=== PATIENT | female | born 1950 | race Caucasian/White ===

== ENCOUNTER 2018-08-22 10:26 | Observation (INO) ==
[2018-08-22 10:51] LABS: Hematocrit 45.5 % (35.3-44.9); Hemoglobin 14.8 g/dL (11.5-15.4); Mean Corpuscular HGB Conc 32.5 g/dL (31.6-35.5); Mean Corpuscular Hemoglobin 29.5 pg (28.0-33.3); Mean Corpuscular Volume 90.8 fL (83.0-100.0); Platelet Count 152 K/mcL (140-400); Red Blood Count 5.01 M/mcL (3.82-4.97); Red Cell Distribution Width 13.9 % (11.5-14.5)
--- NOTE | 2018-08-22 10:53 | Emergency Department Note ---
Disposition Clinical Impression: TIA (transient ischemic attack) HLD (hyperlipidemia) Qualifiers: Hyperlipidemia type: unspecified Qualified Code(s): E78.5 - Hyperlipidemia, unspecified Hypertension Qualifiers: Hypertension type: essential hypertension Qualified Code(s): I10 - Essential (primary) hypertension Disposition: Admitted As Inpatient Condition: Fair Neuro HPI - General Stated Complaint: possible stroke Time Seen by Provider: 08/22/18 10:29 Source: EMS Limitations: no limitations Nursing Notes Reviewed: Yes Vital Signs Reviewed: Yes - History of Present Illness HPI Narrative: 67-year-old female with history of hypertension who presents the emergency department with complaints of left-sided facial droop, slurred speech and right leg weakness. The patient states this morning she woke up and her right finger was twitching otherwise she felt well. She states that at 9:00 she had a sudden onset of headache which went away. She then had a recurrence of her headache around 9:30 and she went home. At that time she was found to have slurred speech and left-sided facial droop. She otherwise states she was recently discontinued from lisinopril as she was having low blood pressure. Otherwise denies any nausea, vomiting, diarrhea, dysuria, hematuria, numbness, tingling. - Related Data Home Medications: Home Medications Medication Instructions Recorded Confirmed Ascorbate Calcium [Vitamin C] 500 mg PO DAILY 03/16/16 03/16/16 Calcium Carbonate [Calcium] 1,200 mg PO BID 03/16/16 03/16/16 Cholecalciferol (D-3) [Vitamin D] 1,000 unit PO DAILY 03/16/16 03/16/16 Cyclobenzaprine [Flexeril] 10 mg PO HS 03/16/16 03/16/16 DiphenhydraMINE [Benadryl] 25 mg PO HS 03/16/16 03/16/16 EPINEPHrine [Epipen] 0.3 mg IJ ONCE PRN 03/16/16 03/16/16 Multivitamin [Multi-Day Vitamins] 1 tab PO DAILY 03/16/16 03/16/16 Niacin (24 HR) [Niaspan] 1,000 mg PO BID 03/16/16 03/16/16 Olopatadine HCl [Patanol] 1 drop OP BID 03/16/16 03/16/16 TraZODone 50 mg PO HS 03/16/16 03/16/16 Previous Rx's Medication Instructions Recorded Ondansetron ODT [Zofran ODT] 4 mg SL Q6HR #8 tab.rapdis 04/28/17 Allergies/Adverse Reactions: Allergies Allergy/AdvReac Type Severity Reaction Status Date / Time Amoxicillin Allergy Vomiting Verified 07/26/18 10:48 Azelastine Allergy Vomiting Verified 07/26/18 10:48 cephalexin Allergy Vomiting Verified 07/26/18 10:48 clonidine Allergy Vomiting Verified 07/26/18 10:48 coconut Allergy Hives Verified 08/22/18 11:00 doxycycline Allergy Vomiting Verified 07/26/18 10:48 glycerin Allergy Vomiting Verified 07/26/18 10:48 [From Colace Glycerin (Adult)] levothyroxine Allergy Vomiting Verified 07/26/18 10:48 levothyroxine sodium Allergy Vomiting Verified 07/26/18 10:48 montelukast [From Singulair] Allergy Vomiting Verified 07/26/18 10:48 Penicillins Allergy Vomiting Verified 07/26/18 10:48 Raloxifene Allergy Vomiting Verified 07/26/18 10:48 red dye Allergy Vomiting Verified 07/26/18 10:48 sodium Allergy Vomiting Verified 07/26/18 10:48 sulfur [From Sulfur-8] Allergy Vomiting Verified 07/26/18 10:48 tetracycline Allergy Vomiting Verified 07/26/18 10:48 yellow dye Allergy Vomiting Verified 07/26/18 10:48 caffeine AdvReac See Verified 03/16/16 08:47 Comments feathers AdvReac See Verified 03/16/16 08:47 Comments grass pollen AdvReac See Verified 03/16/16 08:47 Comments lisinopril AdvReac Dizziness Verified 08/22/18 11:00 milk AdvReac See Verified 03/16/16 08:47 Comments mold AdvReac See Verified 03/16/16 08:47 Comments pollen extracts AdvReac See Verified 03/16/16 08:47 Comments [place] AdvReac See Verified 03/16/16 08:47 Comments theophylline AdvReac See Verified 03/16/16 08:47 Comments tree and shrub pollen AdvReac See Verified 03/16/16 08:47 Comments sodium Allergy Vomiting Uncoded 07/26/18 10:48 vitamin c AdvReac Congested Uncoded 01/09/19 11:01 All systems ED: reviewed and negative except as stated. Review of Systems: As Per HPI Constitutional: Reports: weakness. Denies: fever, chills Eyes: Denies: eye discharge, vision change Cardiovascular: Denies: chest pain, palpitations, dyspnea on exertion Respiratory: Denies: cough, dyspnea, wheezes Gastrointestinal: Denies: abdominal pain, nausea, vomiting, diarrhea Genitourinary: Denies: urgency, dysuria Musculoskeletal: Denies: back pain, neck pain Integumentary: Denies: rash, abrasion Neurological: Reports: headache, weakness. Denies: numbness, paresthesias, confusion Psychiatric: Denies: anxiety, depression Endocrine: Denies: fatigue Past Medical History - Past Medical History Medical history: Reports: arthritis, GERD, hyperlipidemia, osteoporosis Surgical history: Reports: hysterectomy Psychiatric history: Reports: no psych history - Social History Smoking Status: Never smoker Smokeless Tobacco Status: No Alcohol use: Reports: none Drug use: Reports: none Physical Exam - General Limitations: no limitations General appearance: alert, in no apparent distress - Head Head exam: atraumatic, normocephalic - Eye Eye exam: Present: normal appearance, PERRL, EOMI - ENT ENT exam: normal exam, normal oropharynx, mucous membranes moist - Neck Neck exam: Present: normal inspection, full ROM, trachea midline - Chest Chest inspection: Present: normal inspection, symmetric chest wall rise. Absent: tenderness - Respiratory Respiratory exam: Present: normal lung sounds bilaterally. Absent: respiratory distress, wheezes, stridor - Cardiovascular Cardiovascular exam: Present: regular rate, normal rhythm, normal heart sounds - Abdominal Exam Abdominal exam: Present: soft, Non-Tender, normal bowel sounds. Absent: distention, guarding, rebound, rigidity - Neurological Exam Neurological exam: Present: alert, oriented X3 - Expanded Neurological Exam Patient oriented to: Present: person, place, time Speech: Present: fluid speech Course - Reevaluation(s) Reevaluation #1: After CT scan she had no symptoms or weakness. Reevaluated the patient and she states her speech is slurred and she is having left sided facial weakness. She now has right sided leg weakness. She states she is currently having a left- sided headache and has right-sided blurred vision. She states she has been worked up by a heavy forger recently for possible giant cell arteritis. Time: 11:20 - Consultations Consultation #1: Per radiology head CT is negative. Time: 10:51 Vital Signs Temperature 97.7 F 08/22/18 10:38 Pulse Rate 79 08/22/18 10:38 Respiratory Rate 18 08/22/18 10:38 Blood Pressure 179/96 08/22/18 10:38 O2 Sat by Pulse Oximetry 97 08/22/18 10:38 Temperature 97.7 F 08/22/18 10:38 Pulse Rate 81 08/22/18 11:02 Respiratory Rate 20 08/22/18 11:02 Blood Pressure 181/93 08/22/18 11:02 O2 Sat by Pulse Oximetry 97 08/22/18 10:38 Oxygen Delivery Oxygen Delivery Room Air Neuro Symptoms/Deficit - MDM Narrative Medical decision making narrative: 67-year-old female with history of hypertension, no longer on medication presenting with symptoms concerning for CVA. Onset within the four and a half hour window for TPA. On initial exam the patient's NIH is 1 due to right-sided leg weakness. CT head noncontrast obtained which revealed no evidence of acute bleed. After CT scan the patient was evaluated and found to be asymptomatic now. Her NIH at that point was 0. She does seem to have intermittent periods of symptoms with slurred speech and left-sided facial droop along with right- sided lower extremity weakness. Obtained an MRA head and neck to evaluate for occlusive disease. Otherwise she does have temporal pain for which she is currently being worked up for temporal arteritis. Sedimentation rate and CRP obtained which were normal. At this point unsure as to whether symptoms are from TIA, CVA, or lesion seen on both the left and right posterior cerebral arteries on MRA head. ASA 325mg given. Discussed case with on-call hospitalist, Dr. Wing who agrees with plan for admission. Patient agrees with and understands course of treatment plan including plan for admission. All questions answered. - Medical Records Medical records reviewed: Yes I reviewed the patient's medical records. - Lab Data Lab results reviewed: Yes I reviewed the patient's lab results. Result diagrams: 08/22/18 10:41 08/22/18 10:41 Lab Results 08/22/18 08/22/18 08/22/18 Range/Units 10:39 10:41 10:41 WBC 2.7 L (4.3-11.1) K/mcL RBC 5.01 H (3.82-4.97) M/mcL Hgb 14.8 (11.5-15.4) g/dL Hct 45.5 H (35.3-44.9) % MCV 90.8 (83.0-100.0) fL MCH 29.5 (28.0-33.3) pg MCHC 32.5 (31.6-35.5) g/dL RDW 13.9 (11.5-14.5) % Plt Count 152 (140-400) K/mcL MPV 10.0 (9.4-12.4) fL ESR (0-15) mm/hr PT 10.2 (9.4-12.1) Seconds INR 0.9 APTT 24.6 L (26.0-36.0) Seconds Sodium (136-145) mEq/L Potassium (3.5-5.1) mEq/L Chloride (98-107) mEq/L Carbon Dioxide (23-29) mEq/L BUN (8-23) mg/dL Creatinine (0.60-1.20) mg/dL Est GFR ( Amer) (> 60) Est GFR (Non-Af Amer) (> 60) BUN/Creatinine Ratio (6-26) Glucose (70-105) mg/dL POC Glucose 126 H (70-99) mg/dL Calculated Osmolality (280-300) Calcium (8.6-10.3) mg/dL Troponin I (< 0.04) ng/mL C-Reactive Protein (Less than 10) mg/L 08/22/18 08/22/18 Range/Units 10:41 10:41 WBC (4.3-11.1) K/mcL RBC (3.82-4.97) M/mcL Hgb (11.5-15.4) g/dL Hct (35.3-44.9) % MCV (83.0-100.0) fL MCH (28.0-33.3) pg MCHC (31.6-35.5) g/dL RDW (11.5-14.5) % Plt Count (140-400) K/mcL MPV (9.4-12.4) fL ESR 2 (0-15) mm/hr PT (9.4-12.1) Seconds INR APTT (26.0-36.0) Seconds Sodium 135 L (136-145) mEq/L Potassium 3.8 (3.5-5.1) mEq/L Chloride 102 (98-107) mEq/L Carbon Dioxide 25 (23-29) mEq/L BUN 14 (8-23) mg/dL Creatinine 1.01 (0.60-1.20) mg/dL Est GFR ( Amer) > 60 (> 60) Est GFR (Non-Af Amer) 55 L (> 60) BUN/Creatinine Ratio 14 (6-26) Glucose 161 H (70-105) mg/dL POC Glucose (70-99) mg/dL Calculated Osmolality 284 (280-300) Calcium 8.8 (8.6-10.3) mg/dL Troponin I < 0.03 (< 0.04) ng/mL C-Reactive Protein < 5 (Less than 10) mg/L - Radiology Data Radiology results reviewed: Yes I reviewed the patient's radiology results. Brain MRI 08/22/18 00:00 IMPRESSION: Mild chronic small vessel ischemic changes. No acute brain parenchymal abnormality. D/ / 08/22/2018 13:51:54 Shalini Gross MD / [facility] Interpreting Provider: Shalini Gross MD Head CT 08/22/18 10:29 IMPRESSION: 1.No acute intracranial abnormality. These findings were discussed with Inna Harp at 10:49 a.m. 08/22/2018. D/ / Jaiden Castellanos MD / Jaiden Castellanos MD Interpreting Provider: Jaiden Castellanos MD Head MRA 08/22/18 10:58 IMPRESSION: Short-segment stenoses in the P1 segments of both the left and right posterior cerebral arteries, which is nonspecific and could represent atherosclerotic disease. Sometimes vasculitis can cause this finding. There is no abnormality of the anterior circulation. D/ / 08/22/2018 13:56:57 Shalini Gross MD / [facility] Interpreting Provider: Shalini Gross MD Neck MRA 08/22/18 10:58 IMPRESSION: Motion artifact degrades the images. No significant abnormality of the neck vessels. D/ / 08/22/2018 14:01:54 Shalini Gross MD / [facility] Interpreting Provider: Shalini Gross MD NIH Stroke Scale - Level of Consciousness LOC: Alert - LOC Questions LOC Questions: Answers both correctly - LOC Commands LOC Commands: Performs both correctly - Best Gaze Best Gaze: Normal - Visual Visual: No visual loss - Facial Palsy Facial Palsy: Normal - Motor Arms Motor Arm-Left: No drift for 10 seconds Motor Arm-Right: No drift for 10 seconds - Motor Legs Motor Leg-Left: No drift for 5 seconds Motor Leg-Right: Drift, does NOT hit bed - Limb Ataxia Limb Ataxia: Normal, No Ataxia - Sensory Sensory: Normal - Best Language Best Language: No aphasia - Dysarthria Dysarthria: Normal - Extinction and Inattention Extinction and Inattention: Normal - NIHSS Total Score NIHSS Total Score: 1 TPA Checklist - Source Information Source: Patient - Eligibilty for IV tPA 1. LKW equal to or less than 4.5 hours be before treatment: Yes 2. Clinical diagnosis of ischemic stroke causing deficit: Yes 3. Age 18 years or older: Yes - Contraindications 4. Evidence of intracranial hemorrhage on pretreatment CT: No - LKW: 3-4.5 hrs Add. Warnings/Precautions Patient/family understanding: The patient/family members have been counseled and understood the risk, benefit, and alternatives of treatment.
[2018-08-22 11:01] LABS: INR 0.9; Prothrombin Time 10.2 Seconds (9.4-12.1)
[2018-08-22 11:03] LABS: Activated Partial Thrombo Time 24.6 Seconds (26.0-36.0)
[2018-08-22] MEDS ORDERED: predniSONE 20 MG TABLET PO ONE (11:10)
[2018-08-22 11:12] LABS: BUN/Creatinine Ratio 14 (6-26); Blood Urea Nitrogen 14 mg/dL (8-23); Calcium 8.8 mg/dL (8.6-10.3); Carbon Dioxide 25 mEq/L (23-29); Chloride 102 mEq/L (98-107); Glucose 161 mg/dL (70-105); Osmolality,Calculated 284 (280-300); Potassium 3.8 mEq/L (3.5-5.1); Sodium 135 mEq/L (136-145); Troponin I < 0.03 ng/mL (< 0.04); eGFR For Non-African Americans 55 (> 60)
[2018-08-22 11:57] LABS: C-Reactive Protein < 5 mg/L (Less than 10)
[2018-08-22] MEDS ORDERED: Aspirin 325 MG TABLET PO ONE (12:47)
--- NOTE | 2018-08-22 13:16 | Internal Med History&Physical ---
Date of Encounter: 08/22/18 Time of Encounter: 13:30 Internal Medicine - H&P: HPI Chief complaint: Left facial droop Admitted From: Home Plans for Post Hospital Care: Home History of present illness: Ms. Hernandez is a 67 year old female with PMH of HTN, HLD, GERD, multiple allergies, not taking anti-hypertensives, who presented via EMS with complains of left facial droop and slurred speech. She reports being in her usual state of health till this morning around 9.30 a.m when she noticed she started having R sided headaches, Left facial droops and Right leg weakness. She describes it as "feeling like someone is sitting on her R leg" She is a poor historian with multiple non-specific complains including R sided temporal pain for which she was having work up by a mechatronics technologist. She has received multiple steroid shots for sinusitis recently. Her main complains are the neurologic symptoms At time of review, her facial droop and slurred speech has resolved. But her R leg still feels heavy She has no numbness, chest pain, difficulty breathing, SOB, cough, fever or chills, no diarrhea or GI or symptoms Denies smoking or illicit drug use Has multiple allergies-noted Work up in ER *EKG: SR, LBBB-compared to EKG from 06/17 no changes noted *CXR: no infiltrates *Head CT: No acute findings *CBC: leukopenia and polycythemia *Chem: hyperglycemia *ESR: ENL *CRP: WNL Awaiting MRA head and neck reading She is full code Past Med Surg Social Fam HX - Past Medical History Medical history: arthritis, GERD, hyperlipidemia, osteoporosis Additional medical history: skin cancer Psychiatric history: no psych history - Past Surgical History Surgical History: hysterectomy Additional surgical history: tubal ligation - Social History Smoking Status: Never smoker Smokeless Tobacco Status: No Alcohol use: none Drug use: none Internal Medicine - H&P: Meds Ascorbate Calcium [Vitamin C] 500 mg PO DAILY 03/16/16 [History] Calcium Carbonate [Calcium] 1,200 mg PO BID 03/16/16 [History] Cholecalciferol (D-3) [Vitamin D] 1,000 unit PO DAILY 03/16/16 [History] Cyclobenzaprine [Flexeril] 10 mg PO HS 03/16/16 [History] DiphenhydraMINE [Benadryl] 25 mg PO HS 03/16/16 [History] EPINEPHrine [Epipen] 0.3 mg IJ ONCE PRN 03/16/16 [History] Multivitamin [Multi-Day Vitamins] 1 tab PO DAILY 03/16/16 [History] Niacin (24 HR) [Niaspan] 1,000 mg PO BID 03/16/16 [History] Olopatadine HCl [Patanol] 1 drop OP BID 03/16/16 [History] TraZODone 50 mg PO HS 03/16/16 [History] Ondansetron ODT [Zofran ODT] 4 mg SL Q6HR #8 tab.rapdis 04/28/17 [Rx] Benzonatate 07/26/18 [History] Clotrimazole 07/26/18 [History] Fluticasone Propionate 07/26/18 [History] Fosamax 07/26/18 [History] Levaquin 07/26/18 [History] Loratadine 07/26/18 [History] Naproxen 07/26/18 [History] Pantoprazole 07/26/18 [History] Patanol 07/26/18 [History] Raloxifene HCl 07/26/18 [History] Terbinafine HCl 07/26/18 [History] Allergy/AdvReac Type Severity Reaction Status Date / Time Amoxicillin Allergy Vomiting Verified 07/26/18 10:48 Azelastine Allergy Vomiting Verified 07/26/18 10:48 cephalexin Allergy Vomiting Verified 07/26/18 10:48 clonidine Allergy Vomiting Verified 07/26/18 10:48 coconut Allergy Hives Verified 08/22/18 11:00 doxycycline Allergy Vomiting Verified 07/26/18 10:48 glycerin Allergy Vomiting Verified 07/26/18 10:48 [From Colace Glycerin (Adult)] levothyroxine Allergy Vomiting Verified 07/26/18 10:48 levothyroxine sodium Allergy Vomiting Verified 07/26/18 10:48 montelukast [From Singulair] Allergy Vomiting Verified 07/26/18 10:48 Penicillins Allergy Vomiting Verified 07/26/18 10:48 Raloxifene Allergy Vomiting Verified 07/26/18 10:48 red dye Allergy Vomiting Verified 07/26/18 10:48 sodium Allergy Vomiting Verified 07/26/18 10:48 sulfur [From Sulfur-8] Allergy Vomiting Verified 07/26/18 10:48 tetracycline Allergy Vomiting Verified 07/26/18 10:48 yellow dye Allergy Vomiting Verified 07/26/18 10:48 caffeine AdvReac See Verified 03/16/16 08:47 Comments feathers AdvReac See Verified 03/16/16 08:47 Comments grass pollen AdvReac See Verified 03/16/16 08:47 Comments lisinopril AdvReac Dizziness Verified 08/22/18 11:00 milk AdvReac See Verified 03/16/16 08:47 Comments mold AdvReac See Verified 03/16/16 08:47 Comments pollen extracts AdvReac See Verified 03/16/16 08:47 Comments [place] AdvReac See Verified 03/16/16 08:47 Comments theophylline AdvReac See Verified 03/16/16 08:47 Comments tree and shrub pollen AdvReac See Verified 03/16/16 08:47 Comments sodium Allergy Vomiting Uncoded 07/26/18 10:48 vitamin c AdvReac Congested Uncoded 08/22/18 11:01 All Systems PM: A 10-system review of systems was performed and is negative for pertinent findings except as documented above in the HPI. - Constitutional Constitutional: as per HPI - EENT Eyes: as per HPI Ears: as per HPI Nose, mouth and throat: as per HPI - Cardiovascular Cardiovascular ROS IM: as per HPI - Respiratory Respiratory: as per HPI - Gastrointestinal Gastrointestinal: as per HPI - Genitourinary Genitourinary: as per HPI - Musculoskeletal Musculoskeletal ROS IM: as per HPI - Integumentary Integumentary IM: as per HPI - Neurological Neurological ROS: as per HPI - Hematologic/Lymphatic Hematologic/Lymphatic: as per HPI - Constitutional Vitals: Temp Pulse Resp BP Pulse Ox 97.7 F 81 20 181/93 97 08/22/18 10:38 08/22/18 11:02 08/22/18 11:02 08/22/18 11:02 08/22/18 10:38 Exam: VS noted-uncontrolled blood pressure Gen: NAD MARCIANO: moist oral mucosa, not cynaotic, not clinically pale Neck: Normal inspection Chest: No chest wall tenderness, equal chest movement bilaterally Resp: CTAB Heart: S1, S2 RRR, no m/g/r Abdomen: Obese, soft, not tender Extremities: No pedal edema Neuro: Alert, awake, oriented X3, normal speech, no focal paralysis, Power 5/5 in all limbs, gait is normal, patient has no sensation abnormalities, she does have ataxia when she turns suddenly Skin: no rash Psych: Appropriate affect Internal Med - H&P Results - Labs CBC & Chem 7: 08/22/18 10:41 08/22/18 10:41 Labs: Short CBC 08/22/18 Range/Units 10:41 WBC 2.7 L (4.3-11.1) K/mcL Hgb 14.8 (11.5-15.4) g/dL Hct 45.5 H (35.3-44.9) % Plt Count 152 (140-400) K/mcL BMP 08/22/18 10:41 Sodium 135 L Potassium 3.8 Chloride 102 Carbon Dioxide 25 BUN 14 Creatinine 1.01 Glucose 161 H Calcium 8.8 Cardiac Enzymes 08/22/18 Range/Units 10:41 Troponin I < 0.03 (< 0.04) ng/mL - Impressions ITS Impressions Head CT 08/22/18 10:29 IMPRESSION: 1.No acute intracranial abnormality. These findings were discussed with Inna Harp at 10:49 a.m. 08/22/2018. D/ / Jaiden Castellanos MD / Jaiden Castellanos MD Interpreting Provider: Jaiden Castellanos MD - Assessment and plan (1) TIA (transient ischemic attack) Current Visit: Yes Status: Acute Assessment and plan: Suspected, based on history Follow final MRA reports Obtain ECHO No indication for speech eval at this time ASA 325 mg now, then 81 mg daily Head MRA showed short segment stenosis in the P1 segment of the left and right posterior cerebral arteries which is a nonspecific finding and could represent atherosclerotic disease versus vasculitis Suspicion for vasculitis is no mass patient's ESR and CRP are within normal limit. However, patient has been on steroids for sinusitis off and on. We will consult neurology Physical therapy evaluation (2) Hypertension Current Visit: Yes Status: Chronic Assessment and plan: Patient not taking any medications due to poor tolerance Will start amlodipine 5mg daily-given permissive HTN window for possible CVA IV labetalol prn-she reports adverse to hydralazine Continue to monitor Qualifiers: Hypertension type: essential hypertension Qualified Code(s): I10 - E ssential (primary) hypertension (3) HLD (hyperlipidemia) Current Visit: Yes Status: Chronic Assessment and plan: Reports myalgias to "all cholesterol medications' Educated on benefits vs risks of medications Agrees to try crestor from tonight May discontinue if patient complains Qualifiers: Hyperlipidemia type: unspecified Qualified Code(s): E78.5 - Hyperlipidemia, unspecified (4) Polycythemia Current Visit: Yes Status: Chronic Assessment and plan: patient states this is known to her Recommend hematology/oncology eval as out-patient, non-urgent (5) Hyperglycemia Current Visit: Yes Status: Acute Assessment and plan: likely due to multiple steroid shots, last one being 1st week of july Check a1C with a.m labs (6) Leukopenia Current Visit: Yes Status: Acute Assessment and plan: as in polycythemia Chronic, known to patient Qualifiers: Leukopenia type: unspecified Qualified Code(s): D72.819 - Decreased white blood cell count, unspecified - Time Spent With Patient Total time spent is greater than 50% in coordination of care (as documented) at patient's floor/unit and/or counseling patient:
--- NOTE | 2018-08-22 17:14 | Neurology - Consult Note ---
Date of Encounter: 08/22/18 Time of Encounter: 16:55 Assessment and Plan (1) TIA (transient ischemic attack) Current Visit: Yes Status: Acute The episode involve development of left eyelid drooping which is still present, left hand and finger muscle spasm as well as right leg weakness, lasting 45 minutes with a total resolution. A combination of symptoms would locate to a brainstem lesion due to presence of crossed weakness. However presentation is somewhat atypical due to patient having muscle spasm which is opposite of weakness. Also the patient's left eyelid drooping has been a chronic intermittent phenomenon since the last 6 months. Negative MRI of the brain excluded a brainstem stroke. At this time, would recommend the patient to start antiplatelet therapy in the form of aspirin 81 mg daily. Patient did have exposure to aspirin in the past but not on a regular basis. Patient already had MRA of the brain and neck completed which showed bilateral JOINTER OPERATOR P1 segment stenosis this finding would be unclear clinical significance due to patient having negative MRI of the brain of a new stroke. Treatment is largely conservative with antiplatelet therapy. (2) Chronic headache disorder Current Visit: Yes Status: Acute I agree that the patient likely does not have temporal arteritis. So far the patient's symptoms signs and laboratory studies does not meet the diagnosis criteria for temporal arteritis although she does have rather persistent right temporal tenderness. However, this could be part of a right occipital neuralgia which at times can refer to the frontal region. She does have rather significant tenderness and the dining area involving the back of the head involving the right skull conforming to the distribution of right occipital nerve. This can certainly be treated best with the occipital nerve blockade procedure which can be offered as an outpatient basis. Qualifiers: Headache type: unspecified Intractability: intractable Qualified Code(s): R51 - Headache (3) Eyelid drooping disease Current Visit: Yes Status: Acute Patient has been experiencing intermittent left eyelid drooping since the last 6 months without double vision or other cranial nerve deficits. In particular, there is no bulbar symptoms such as difficulty swallowing, speaking or breathing. There is no diffuse limb weakness. Differential consideration would be ocular myasthenia gravis or eyelid drooping secondary to eye/ocular conditions. Patient can certainly be evaluated by flat examiner as an outpatient basis. We will obtain myasthenia gravis panel to check for possible ocular myasthenia gravis. Patient can be seen in neurology clinic in the next 2-3 weeks. Qualifiers: Qualified Code(s): H02.402 - Unspecified ptosis of left eyelid History of Present Illness Chief complaint: TIA, left eyelid drooping and right leg weakness HPI: Ms. Hernandez is a 67 year old female with past medical history significant for hypertension, allergic rhinitis, osteoporosis, primary insomnia, long-term use of NSAIDs chronic headaches GERD who is consulted regarding old new onset of left eyelid drooping, left arm spasm as well as right leg weakness. Patient is interviewed alone and she is wide awake and alert and able to provide detailed history of her present illness. Patient states that about 9:30 this morning she woke up feeling left eyelid drooping which has been going on in the last 5-6 months intermittently. She developed acute muscle spasm involving her left hand and fingers and she states that she has to use her right hand to straighten her left fingers. At the same time she developed weakness in her right leg. She has been having intermittent left eyelid drooping since the last few months amezquita dipak, the left hand finger muscle spasm is new as well as right leg weakness. The symptoms lasted about 45 minutes and by the time she arrived to the emergency room her symptoms resolved. Initial head CT showed no acute intracranial abnormality. Subsequently, the patient also completed MRI of the brain which showed no acute intracranial abnormality. Patient's MRA of the brain showed short segment stenosis in the P1 segments of both the left and right posterior cerebral arteries which is nonspecific and could represent atherosclerotic disease. It was reported that sometimes vasculitis can cause this finding. There is no abnormality of anterior circulation. Patient also reports significant headaches that has been going on since the last 2 years year as a matter fact, there is questionable temporal arteritis diagnosis due to rather significant headaches involving the right jain region with tenderness that has been going on since the last 2 years. Patient just saw Dr. Magallanes the sheet metal worker helper ordered laboratory studies which showed normal sedimentation rate repetitively. It was thought that the patient does not have diagnosis of temporal arteritis due to lack of systemic symptoms, no jaw claudication, no PMR and normal ESR. Patient reports some ongoing sinus problems that required steroid injection and she will last one or 2 months which helped with the pain. Patient describes also intermittent pain involving the right back of head at the base of right occipital nerve exit 10 point that occur intermittently. The pain can refer to the right eye and at times to the left eye as well. At times, the patient describes a muscle knot at the right side back of the head that is painful to touch and palpate. The headaches tend to occur intermittently on last anywhere from 3 hours to a day. They are not associated with significant nausea or vomiting or light sensitivity. At the time of this interview, the patient symptoms essentially resolved. She does have some tenderness to the right jain region which is chronic in nature. She denies any focal neurological deficits at this moment. Echocardiogram is pending. Past Med Surg Social Fam HX - Past Medical History Medical history: arthritis, GERD, hyperlipidemia, osteoporosis Additional medical history: skin cancer Psychiatric history: no psych history - Past Surgical History Surgical History: hysterectomy Additional surgical history: tubal ligation - Social History Smoking Status: Never smoker Smokeless Tobacco Status: No Alcohol use: none Drug use: none - Family History Mother Living Status: Still Living Hx Family Cardiac Disorders: (HLD) Father Living Status: Hx Family Cardiac Disorders: Yes Hx Family Cancer: Yes Medications and Allergies Calcium Carbonate [Calcium] 1,200 mg PO BID 03/16/16 [History] Cholecalciferol (D-3) [Vitamin D] 1,000 unit PO DAILY 03/16/16 [History] Cyclobenzaprine [Flexeril] 10 mg PO HS 03/16/16 [History] DiphenhydraMINE [Benadryl] 25 mg PO HS 03/16/16 [History] EPINEPHrine [Epipen] 0.3 mg IJ ONCE PRN 03/16/16 [History] Niacin (24 HR) [Niaspan] 1,000 mg PO BID 03/16/16 [History] Olopatadine HCl [Patanol] 1 drop OP BID 03/16/16 [History] TraZODone 50 mg PO HS 03/16/16 [History] Aspirin [Adult Aspirin] 81 mg PO DAILY 08/22/18 [History] Fluticasone Propionate Nasal [Flonase] 1 spr NS DAILY PRN 08/22/18 [History] Loratadine [Allergy Relief] 10 mg PO DAILY 08/22/18 [History] Ondansetron ODT [Zofran ODT] 4 mg SL Q6HR PRN 08/22/18 [History] Pantoprazole Sodium [Protonix] 40 mg PO DAILY 08/22/18 [History] Allergy/AdvReac Type Severity Reaction Status Date / Time Amoxicillin Allergy Vomiting Verified 07/26/18 10:48 Azelastine Allergy Vomiting Verified 07/26/18 10:48 cephalexin Allergy Vomiting Verified 07/26/18 10:48 clonidine Allergy Vomiting Verified 07/26/18 10:48 coconut Allergy Hives Verified 08/22/18 11:00 doxycycline Allergy Vomiting Verified 07/26/18 10:48 glycerin Allergy Vomiting Verified 07/26/18 10:48 [From Colace Glycerin (Adult)] levothyroxine Allergy Vomiting Verified 07/26/18 10:48 levothyroxine sodium Allergy Vomiting Verified 07/26/18 10:48 montelukast [From Singulair] Allergy Vomiting Verified 07/26/18 10:48 Penicillins Allergy Vomiting Verified 07/26/18 10:48 Raloxifene Allergy Vomiting Verified 07/26/18 10:48 red dye Allergy Vomiting Verified 07/26/18 10:48 sodium Allergy Vomiting Verified 07/26/18 10:48 sulfur [From Sulfur-8] Allergy Vomiting Verified 07/26/18 10:48 tetracycline Allergy Vomiting Verified 07/26/18 10:48 yellow dye Allergy Vomiting Verified 07/26/18 10:48 caffeine AdvReac See Verified 03/16/16 08:47 Comments feathers AdvReac See Verified 03/16/16 08:47 Comments grass pollen AdvReac See Verified 03/16/16 08:47 Comments lisinopril AdvReac Dizziness Verified 08/22/18 11:00 milk AdvReac See Verified 03/16/16 08:47 Comments mold AdvReac See Verified 03/16/16 08:47 Comments pollen extracts AdvReac See Verified 03/16/16 08:47 Comments [place]ray AdvReac See Verified 03/16/16 08:47 Comments theophylline AdvReac See Verified 03/16/16 08:47 Comments tree and shrub pollen AdvReac See Verified 03/16/16 08:47 Comments sodium Allergy Vomiting Uncoded 07/26/18 10:48 vitamin c AdvReac Congested Uncoded 08/22/18 11:01 All Systems: The remainder of the systems were reviewed and are negative Physical Examination - Vital Signs Vital Signs: Initial Vital Signs Temp Pulse Resp BP Pulse Ox 97.7 F 79 18 179/96 97 08/22/18 10:38 08/22/18 10:38 08/22/18 10:38 08/22/18 10:38 08/22/18 10:38 - Constitutional General appearance: comfortable - Neurologic Detailed motor examination: full strength in all major muscle groups Motor examination - right side: 12/16: deltoids, biceps, triceps, wrist flexion, wrist extension, slot tag inserter, hip flexors, tibialis Anterior, quadriceps, toe extension (EHL), plantarflexion Motor examination - left side: 12/16: deltoids, biceps, triceps, wrist flexion, wrist extension, hip flexors, slot tag inserter, quadriceps, tibialis Anterior, toe extension (EHL), plantarflexion Detailed sensory examination: intact Posture: other (none) Reflex and gait examination: intact Reflexes: Biceps: 2+, Triceps: 2+, Brachioradialis: 2+, Patella: 2+, Achilles: 2+ Mental Status Examination: awake, alert, oriented to person, oriented to place, oriented to time, follows commands appropriately, answers questions appropriately, no agnosia, no aphasia, no aproxia, lucid Cranial nerve examination: PERRL, EOMI (Eye movements are full, slight left eye lid drooping noted. ), visual melgar intact, corneal reflexes brisk symmetrically, sensory to face intact, mastication intact, no facial asymmetry is present, no dysarthria, hearing is intact symmetrically, soft palate elevates bilaterally upon phonation, gag reflex intact, flexes SCM and trapezius muscles symmetrically with full power, tongue protrudes midline, no atrophy or facial fasiculations present Cerebellar examination: no dysmetria, performs finger to nose and heel to tracey symmetrically without ataxia, no gait ataxia, no truncal ataxia, no difficulty with rapid alternating movements Results - Laboratory Findings CBC and BMP: 08/22/18 10:41 08/22/18 10:41 Abnormal lab findings: Abnormal lab results WBC 2.7 K/mcL (4.3-11.1) L 08/22/18 10:41 RBC 5.01 M/mcL (3.82-4.97) H 08/22/18 10:41 Hct 45.5 % (35.3-44.9) H 08/22/18 10:41 APTT 24.6 Seconds (26.0-36.0) L 08/22/18 10:41 Sodium 135 mEq/L (136-145) L 08/22/18 10:41 Est GFR (Non-Af Amer) 55 (> 60) L 08/22/18 10:41 Glucose 161 mg/dL (70-105) H 08/22/18 10:41 POC Glucose 126 mg/dL (70-99) H 08/22/18 10:39 - Diagnostic Findings Additional findings: MRA OF THE HEAD WITHOUT CONTRAST 08/22/2018 1:25 pm TECHNIQUE: MRA of the head was performed utilizing [id number] imaging with MIP images. No intravenous contrast was administered. COMPARISON: MRI brain 08/22/2018 HISTORY: ORDERING SYSTEM PROVIDED HISTORY: left sided facial droop, right LE weakness Initial evaluation. FINDINGS: ANTERIOR CIRCULATION: No abnormality of the internal carotid arteries, middle cerebral arteries, or anterior cerebral arteries are identified. POSTERIOR CIRCULATION: The distal vertebral arteries and basilar artery are patent. The posterior cerebral arteries are patent bilaterally. There is a subtle area of narrowing in the P1 segment of the right posterior cerebral artery and two short segment areas of narrowing in the P1 segment of the left posterior cerebral artery. These may represent atherosclerotic changes. Sometimes vasculitis can cause this finding, although the anterior circulation appears within normal limits. The posterior communicating arteries are tiny, but patent bilaterally. The anterior communicating artery is not well visualized. No aneurysm is identified. Aneurysms less than 3 millimeters can be missed on MRA. MR/MR angio head wo con IMPRESSION: Short-segment stenoses in the P1 segments of both the left and right posterior cerebral arteries, which is nonspecific and could represent atherosclerotic disease. Sometimes vasculitis can cause this finding. There is no abnormality of the anterior circulation. D/ / 08/22/2018 13:56:57 Shalini Gross MD / andrey Interpreting Provider: Shalini Gross MD End of Report Content Attending Doctor: Henry Currie ([id number]) Medical Staff Director: ([id number]) Branch Sales And Service Representative: (INTRANCRAD) Report Date: 08/22/2018 13:45:00 Report Status: Preliminary Begin of Report Content [address] [address] Magnetic Resonance Report Draft PRELIMINARY DRAFT REPORT UNTIL ELECTRONICALLY SIGNED PATIENT: Gabriela Hernandez MR#: [id number] : 1950 AGE/SEX: 67 / F ADMITTED: 08/22/18 OUTSIDE LOCN: LOCATION: [facility] ATTENDING: ORDER PHYSICIAN: Inna Harp BIRAD: NA Not Applicable DATE OF SERVICE: 08/22/18 ACCESSION NUMBERS(S): [id number] PROCEDURE(S): MR angio head wo con REASON FOR EXAM: left sided facial droop, right LE weakness cc: ; MR/MR angio head wo con IMPRESSION: Short-segment stenoses in the P1 segments of both the left and right posterior cerebral arteries which is nonspecific and could represent sent atherosclerotic disease. Sometimes vasculitis can cause this finding. There is no abnormality of the anterior circulation. D/ / Shalini Gross MD / Shalini Gross MD Interpreting Provider: Shalini Gross MD MRI OF THE BRAIN WITHOUT CONTRAST 08/22/2018 1:25 pm TECHNIQUE: Multiplanar multisequence MRI of the brain was performed without the administration of intravenous contrast. COMPARISON: None. HISTORY: ORDERING SYSTEM PROVIDED HISTORY: left sided facial droop, right LE weakness Headache. Acute symptoms. Initial evaluation. FINDINGS: INTRACRANIAL STRUCTURES/VENTRICLES: There is no acute infarct. The ventricles and cisternal spaces are normal in size, shape, and configuration for the age of the patient. There are a few punctate areas of high-signal in the periventricular white matter and centrum semiovale that are likely related to chronic small vessel ischemic disease. There is no midline shift or mass effect. There are no areas of restricted diffusion. ORBITS: The visualized portion of the orbits demonstrate no acute abnormality. SINUSES: The visualized paranasal sinuses and mastoid air cells are clear. BONES/SOFT TISSUES: The bone marrow signal intensity appears normal. The soft tissues demonstrate no acute abnormality. MR/MR head/brain wo con IMPRESSION: Mild chronic small vessel ischemic changes. No acute brain parenchymal abnormality. D/ / 08/22/2018 13:51:54 Shalini Gross MD / [email or web address] Interpreting Provider: Shalini Gross MD End of Report Content Attending Doctor: Henry Currie ([id number]) Medical Staff Director: ([id number]) Branch Sales And Service Representative: (INTRANCRAD) Report Date: 08/22/2018 13:43:00 Report Status: Preliminary Begin of Report Content [address] [address] Magnetic Resonance Report Draft PRELIMINARY DRAFT REPORT UNTIL ELECTRONICALLY SIGNED PATIENT: Gabriela Hernandez MR#: [id number] : 1950 AGE/SEX: 67 / F ADMITTED: 08/22/18 OUTSIDE LOCN: LOCATION: [facility] ATTENDING: ORDER PHYSICIAN: Henry Currie BIRAD: NA Not Applicable DATE OF SERVICE: 08/22/18 ACCESSION NUMBERS(S): [id number] PROCEDURE(S): MR head/brain wo con REASON FOR EXAM: left sided facial droop, right LE weakness cc: ; MR/MR head/brain wo con IMPRESSION: Mild chronic small vessel ischemic changes. No acute brain parenchymal abnormality. D/ / Shalini Gross MD / Shalini Gross MD Interpreting Provider: Shalini Gross MD MRA OF THE NECK WITH AND WITHOUT CONTRAST 08/22/2018 1:25 pm TECHNIQUE: Multiplanar multisequence MRA of the neck was performed with and without the administration of intravenous contrast. Stenosis of the internal carotid arteries measured using NASCET criteria. COMPARISON: None HISTORY: ORDERING SYSTEM PROVIDED HISTORY: left sided facial droop, right LE weakness Initial evaluation. FINDINGS: Motion artifact limits the images. AORTIC ARCH/GREAT VESSELS: There is a normal branch pattern of the aortic arch. No significant stenosis is seen of the innominate artery or subclavian arteries. CAROTID ARTERIES: The common carotid arteries are normal in appearance without evidence of a flow limiting stenosis. The internal carotid arteries are normal in appearance without evidence of a flow limiting stenosis by NASCET criteria. VERTEBRAL ARTERIES: The vertebral arteries are codominant. The vertebral arteries are patent bilaterally without any narrowing or stenosis. MR/MR angio neck wo/w con IMPRESSION: Motion artifact degrades the images. No significant abnormality of the neck vessels. D/ / 08/22/2018 14:01:54 Shalini Gross MD / sanaz Interpreting Provider: Shalini Gross MD End of Report Content Attending Doctor: Henry Currie ([id number]) Medical Staff Director: ([id number]) Branch Sales And Service Representative: (INTRANCRAD) Report Date: 08/22/2018 13:49:00 Report Status: Preliminary Begin of Report Content [address] [address] Magnetic Resonance Report Draft PRELIMINARY DRAFT REPORT UNTIL ELECTRONICALLY SIGNED PATIENT: Gabriela Hernandez MR#: [id number] : 1950 AGE/SEX: 67 / F ADMITTED: 08/22/18 OUTSIDE LOCN: LOCATION: [facility] ATTENDING: ORDER PHYSICIAN: Inna Harp BIRAD: NA Not Applicable DATE OF SERVICE: 08/22/18 ACCESSION NUMBERS(S): [id number] PROCEDURE(S): MR angio neck wo/w con REASON FOR EXAM: left sided facial droop, right LE weakness cc: ; MR/MR angio neck wo/w con IMPRESSION: Motion artifact degrades the images. No significant abnormality of the neck vessels. D/ / Shalini Gross MD / Shalini Gross MD Interpreting Provider: Shalini Gross MD Consult Discharge Plan - Plan Referrals: Lola Levin, INTERMEDIATE SCHOOL TEACHER [Primary Care Provider] -
[2018-08-22] MEDS: Acetaminophen 325 MG TABLET PO PRN ×2 (18:04→23:57)
--- NOTE | 2018-08-22 20:06 | Event Note ---
Date of Encounter: 08/22/18 Time of Encounter: 19:25 Notified by nurse of patient having 2 episodes, one lasting around 3 minutes and the other lasting around 5 minutes where patient experienced symptoms similar to episode earlier today with numbness and tingling around her left eye. Only new symptom with these two occurrences is the patient described it now radiating to and involving her throat. Assessed patient at bedside and symptoms currently completely resolved. No current deficits noted. Called instrumentation chemist neurology Dr Ortiz, who has no current recommendations, but does recommend repeat head CT if any new concern for stroke develops, will also see patient in a.m.
[2018-08-23 05:18] LABS: Basophils % 0.2 %; Hematocrit 41.4 % (35.3-44.9); Hemoglobin 14.2 g/dL (11.5-15.4); Lymphocytes # 0.4 K/mcL (0.6-4.6); Lymphocytes % 10.7 %; Mean Corpuscular HGB Conc 34.3 g/dL (31.6-35.5); Mean Corpuscular Hemoglobin 30.1 pg (28.0-33.3); Mean Corpuscular Volume 87.9 fL (83.0-100.0); Monocytes # 0.2 K/mcL (0.0-1.3); Monocytes % 5.7 %; Neutrophils # 3.3 K/mcL (1.6-8.9); Platelet Count 132 K/mcL (140-400); Red Blood Count 4.71 M/mcL (3.82-4.97); Red Cell Distribution Width 13.7 % (11.5-14.5); Segmented Neutrophils % 82.4 %
[2018-08-23 05:38] LABS: BUN/Creatinine Ratio 14 (6-26); Blood Urea Nitrogen 13 mg/dL (8-23); Calcium 8.8 mg/dL (8.6-10.3); Carbon Dioxide 26 mEq/L (23-29); Chloride 107 mEq/L (98-107); Chol/HDL Ratio 2.7 (0-4.9); Cholesterol 144 mg/dL (< 200); Glucose 148 mg/dL (70-105); HDL Cholesterol 53 mg/dL (40-59); LDL Cholesterol,Calculated 78 mg/dL (0-99); Osmolality,Calculated 293 (280-300); Sodium 140 mEq/L (136-145); Triglycerides 65 mg/dL (< 150); eGFR For Non-African Americans > 60 (> 60)
[2018-08-23] MEDS ORDERED: amLODIPine 5 MG TABLET PO SCH (09:00)
[2018-08-23] MEDS ORDERED: Aspirin Enteric Coated 81 MG Tablet PO SCH (09:00)
--- NOTE | 2018-08-23 09:06 | Neurology Progress Note ---
Addendum entered and electronically signed by Jamilah Ortiz MD 08/23/18 12:28: Patient seen and examined. she developed few spells over night, characterized bilateral index finger immobility lasting few seconds, also few episodes of left eyelid drooping as well as left occipital neck pain referring to the left eye. All transient and totally resolved. Difficult to localize and they are off unclear clinical significance. Will not recommend further testing at this time. Stroke work up already completed and She will be followed up in neurology in few weeks to follow up the Myasthenia Gravis panel and neck pain. Okay to discharge home. Original Note: <Karan Quispe - Last Filed: 08/23/18 09:06> Date of Encounter: 08/23/18 Assessment and Plan (1) TIA (transient ischemic attack) Current Visit: Yes Status: Acute TIA (transient ischemic attack) Patient presented with left-sided eyelid drooping, as well as left hand and finger muscle spasm with right-sided leg weakness MRI of the brain was unremarkable Patient was started on ASA therapy 81 mg daily Per event note on 08/22: Patient was experiencing episodes of numbness and ti ngling around her left eye, one lasting 3 minutes and the other lasting 5 minutes. Patient stated that there was a new symptom of this numbness radiating down into the throat. Patient was assessed at bedside; no deficits were noted and she stated that her symptoms had completely resolved. Plan: Order repeat CT scan of the head Continue antiplatelet therapy Objective - Constitutional Vitals: Temp Pulse Resp BP Pulse Ox 98.0 F 74 13 148/82 93 08/23/18 03:50 08/23/18 06:27 08/23/18 06:27 08/23/18 06:27 08/23/18 09:00 - Neurological Exam Motor Examination: Present: full strength in all major muscle groups Motor examination - left side: 5/5: deltoids, biceps, triceps, wrist flexion, wrist extension, hip flexors, environmental technician, quadriceps, tibialis Anterior, toe extension (EHL), plantarflexion Sensation intact: Present: intact Posture: Present: other (none) Reflex and gait examination: intact Mental Status Examination: Present: awake, alert, oriented to person, oriented to place, oriented to time, follows commands appropriately, answers questions appropriately, no agnosia, no aphasia, no aproxia, lucid Cranial nerve examination: Present: PERRL, EOMI (Eye movements are full, slight left eye lid drooping noted. ), visual melgar intact, corneal reflexes brisk symmetrically, sensory to face intact, mastication intact, no facial asymmetry is present, no dysarthria, hearing is intact symmetrically, soft palate elevates bilaterally upon phonation, gag reflex intact, flexes SCM and trapezius muscles symmetrically with full power, tongue protrudes midline, no atrophy or facial fasiculations present Cerebellar examination: Present: no dysmetria, performs finger to nose and heel to tracey symmetrically without ataxia, no gait ataxia, no truncal ataxia, no difficulty with rapid alternating movements Results - Laboratory Findings CBC and BMP: 08/23/18 04:50 08/23/18 04:50 Abnormal lab findings: Abnormal lab results WBC 4.0 K/mcL (4.3-11.1) L 08/23/18 04:50 Plt Count 132 K/mcL (140-400) L 08/23/18 04:50 Lymphocytes # 0.4 K/mcL (0.6-4.6) L 08/23/18 04:50 APTT 24.6 Seconds (26.0-36.0) L 08/22/18 10:41 Glucose 148 mg/dL (70-105) H 08/23/18 04:50 POC Glucose 222 mg/dL (70-99) H 08/22/18 20:16 Consult Discharge Plan - Plan Referrals: Lola Levin ELECTRICAL PROSPECTING SUPERVISOR [Primary Care Provider] - 08/29/18 1:00 pm <Jamilah Ortiz - Last Filed: 08/23/18 12:28> Date of Encounter: 08/23/18 Time of Encounter: 12:24 Assessment and Plan (1) TIA (transient ischemic attack) Current Visit: Yes Status: Acute (2) Chronic headache disorder Current Visit: Yes Status: Acute Qualifiers: Headache type: unspecified Intractability: intractable Qualified Code(s): R51 - Headache (3) Eyelid drooping disease Current Visit: Yes Status: Acute Qualifiers: Qualified Code(s): H02.402 - Unspecified ptosis of left eyelid Subjective Principal diagnosis: TIA Interval history: Patient seen and examined. She developed few episodes of bilateral index finger immobility lasting few seconds, some left occipital pain and muscle spasms as well what she described as left facial eyelid drooping which totally resolved. Currently non focal examination. No acute complaints now. Objective - Constitutional Vitals: Temp Pulse Resp BP Pulse Ox 98.0 F 74 13 148/82 93 08/23/18 03:50 08/23/18 06:27 08/23/18 06:27 08/23/18 06:27 08/23/18 09:00 Results - Laboratory Findings CBC and BMP: 08/23/18 04:50 08/23/18 04:50 Abnormal lab findings: Abnormal lab results WBC 4.0 K/mcL (4.3-11.1) L 08/23/18 04:50 Plt Count 132 K/mcL (140-400) L 08/23/18 04:50 Lymphocytes # 0.4 K/mcL (0.6-4.6) L 08/23/18 04:50 APTT 24.6 Seconds (26.0-36.0) L 08/22/18 10:41 Glucose 148 mg/dL (70-105) H 08/23/18 04:50 POC Glucose 222 mg/dL (70-99) H 08/22/18 20:16 Hemoglobin A1c 5.7 % (-5.6) H 08/23/18 04:50
[2018-08-23 09:29] LABS: Estimated Average Glucose 117 mg/dl; Hemoglobin A1C 5.7 %
[2018-08-23 13:12] VITALS: BP 152/93
--- NOTE | 2018-08-23 18:20 | Discharge Summary ---
- NOTES TO OUTPATIENT PROVIDER Notes to Outpatient Provider: f/u with pcp Orders not resulted at time of discharge: Pending orders 08/22/18 10:41 Acetylcholine Receptor Ab Rflx Routine follow up with primary physician within 7 days Date of Encounter: 08/23/18 Time of Encounter: 13:00 - Discharge Diagnosis (1) HLD (hyperlipidemia) Priority: Secondary Status: Suspected Assessment and Plan: Reports myalgias to "all cholesterol medications' Educated on benefits vs risks of medications Agrees to try crestor from tonight May discontinue if patient complains Qualifiers: Hyperlipidemia type: unspecified Qualified Code(s): E78.5 - Hyperlipidemia, unspecified (2) Polycythemia Priority: Secondary Status: Suspected (3) Hyperglycemia Priority: Secondary Status: Suspected (4) Leukopenia Priority: Secondary Status: Acute Qualifiers: Leukopenia type: unspecified Qualified Code(s): D72.819 - Decreased white blood cell count, unspecified Hospital course: Ms. Hernandez is a 67 year old female - Time Spent with Patient Total time spent providing and/or coordinating discharge services: - Discharge Medications Prescriptions: amLODIPine [Norvasc] 5 mg PO DAILY 30 Days #30 tablet Atorvastatin [Lipitor] 40 mg PO HS 30 Days #30 tablet Home Medications: Calcium Carbonate [Calcium] 1,200 mg PO BID 03/16/16 [History] Cholecalciferol (D-3) [Vitamin D] 1,000 unit PO DAILY 03/16/16 [History] Cyclobenzaprine [Flexeril] 10 mg PO HS 03/16/16 [History] DiphenhydraMINE [Benadryl] 25 mg PO Q6H PRN 03/16/16 [History] Niacin (24 HR) [Niaspan] 1,000 mg PO BID 03/16/16 [History] Olopatadine HCl [Patanol] 1 drop OP BID PRN 03/16/16 [History] RX: EPINEPHrine [Epipen] 0.3 mg IM ONCE PRN 03/16/16 [History] RX: TraZODone 50 mg PO HS 03/16/16 [History] Aspirin [Adult Aspirin] 81 mg PO DAILY 08/22/18 [History] Loratadine [Allergy Relief] 10 mg PO DAILY 08/22/18 [History] Ondansetron ODT [Zofran ODT] 4 mg SL Q6HR PRN 08/22/18 [History] Pantoprazole Sodium [Protonix] 40 mg PO DAILY 08/22/18 [History] RX: Fluticasone Propionate Nasal [Flonase] 1 spr NS DAILY PRN 08/22/18 [History] Atorvastatin [Lipitor] 40 mg PO HS 30 Days #30 tablet 08/23/18 [Rx] amLODIPine [Norvasc] 5 mg PO DAILY 30 Days #30 tablet 08/23/18 [Rx] Allergies/Adverse Reactions: Allergy/AdvReac Type Severity Reaction Status Date / Time Amoxicillin Allergy Vomiting Verified 07/26/18 10:48 Azelastine Allergy Vomiting Verified 07/26/18 10:48 cephalexin Allergy Vomiting Verified 07/26/18 10:48 clonidine Allergy Vomiting Verified 07/26/18 10:48 coconut Allergy Hives Verified 08/22/18 11:00 doxycycline Allergy Vomiting Verified 07/26/18 10:48 glycerin Allergy Vomiting Verified 07/26/18 10:48 [From Colace Glycerin (Adult)] levothyroxine Allergy Vomiting Verified 07/26/18 10:48 levothyroxine sodium Allergy Vomiting Verified 07/26/18 10:48 montelukast [From Singulair] Allergy Vomiting Verified 07/26/18 10:48 Penicillins Allergy Vomiting Verified 07/26/18 10:48 Raloxifene Allergy Vomiting Verified 07/26/18 10:48 red dye Allergy Vomiting Verified 07/26/18 10:48 sodium Allergy Vomiting Verified 07/26/18 10:48 sulfur [From Sulfur-8] Allergy Vomiting Verified 07/26/18 10:48 tetracycline Allergy Vomiting Verified 07/26/18 10:48 yellow dye Allergy Vomiting Verified 07/26/18 10:48 caffeine AdvReac See Verified 03/16/16 08:47 Comments feathers AdvReac See Verified 03/16/16 08:47 Comments grass pollen AdvReac See Verified 03/16/16 08:47 Comments lisinopril AdvReac Dizziness Verified 08/22/18 11:00 milk AdvReac See Verified 03/16/16 08:47 Comments mold AdvReac See Verified 03/16/16 08:47 Comments pollen extracts AdvReac See Verified 03/16/16 08:47 Comments [place] AdvReac See Verified 03/16/16 08:47 Comments theophylline AdvReac See Verified 03/16/16 08:47 Comments tree and shrub pollen AdvReac See Verified 03/16/16 08:47 Comments sodium Allergy Vomiting Uncoded 07/26/18 10:48 vitamin c AdvReac Congested Uncoded 08/22/18 11:01 Date of admission: 08/22/18 14:07 Primary care physician: Lola Levin CNP Consults: 08/22/18 14:11 Consult to Neurology [CONS] Routine Consulting Provider: [facility] Reason for Consult: TIA Call Completed: Yes - Constitutional Vitals: Temp Pulse Resp BP Pulse Ox 98.1 F 74 15 152/93 94 08/23/18 13:10 08/23/18 06:27 08/23/18 13:10 08/23/18 13:10 08/23/18 13:10 Exam: VS noted-uncontrolled blood pressure Gen: NAD MARCIANO: moist oral mucosa, not cynaotic, not clinically pale Neck: Normal inspection Chest: No chest wall tenderness, equal chest movement bilaterally Resp: CTAB Heart: S1, S2 RRR, no m/g/r Abdomen: Obese, soft, not tender Extremities: No pedal edema Neuro: Alert, awake, oriented X3, normal speech, no focal paralysis, Power 5/5 in all limbs, gait is normal, patient has no sensation abnormalities, she does have ataxia when she turns suddenly Skin: no rash Psych: Appropriate affect - Patient Status Disposition: Home, Self-Care Condition: Fair - Discharge Instructions Instructions: Transient Ischemic Attack (DC) Follow Up With: Lola Levin CNP [Primary Care Provider] - 08/29/18 1:00 pm Jamilah Ortiz MD [Partnered Physician] - 08/28/18 9:00 am Forms: ED Satisfaction Letter
--- NOTE | 2018-08-23 21:40 | Electrocardiograph Report ---
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
--- NOTE | 2018-08-28 10:36 | Emergency Department Note ---
Disposition Clinical Impression: TIA (transient ischemic attack), HLD (hyperlipidemia), Hypertension Disposition: Admitted As Inpatient Condition: Fair General Adult HPI - General Chief complaint: ED Neuro Symptoms/Deficit Stated complaint: possible stroke Time Seen by Provider: 08/22/18 10:29 Source: EMS Limitations: no limitations - History of Present Illness Pain Scale: 3 - Related Data Home Medications Medication Instructions Recorded Confirmed Calcium Carbonate [Calcium] 1,200 mg PO BID 03/16/16 08/22/18 Cholecalciferol (D-3) [Vitamin D] 1,000 unit PO DAILY 03/16/16 08/22/18 Cyclobenzaprine [Flexeril] 10 mg PO HS 03/16/16 08/22/18 DiphenhydraMINE [Benadryl] 25 mg PO Q6H PRN 03/16/16 08/22/18 EPINEPHrine [Epipen] 0.3 mg IM ONCE PRN 03/16/16 08/22/18 Niacin (24 HR) [Niaspan] 1,000 mg PO BID 03/16/16 08/22/18 Olopatadine HCl [Patanol] 1 drop OP BID PRN 03/16/16 08/22/18 TraZODone 50 mg PO HS 03/16/16 08/22/18 Aspirin [Adult Aspirin] 81 mg PO DAILY 08/22/18 08/22/18 Fluticasone Propionate Nasal 1 spr NS DAILY PRN 08/22/18 08/22/18 [Flonase] Loratadine [Allergy Relief] 10 mg PO DAILY 08/22/18 08/22/18 Ondansetron ODT [Zofran ODT] 4 mg SL Q6HR PRN 08/22/18 08/22/18 Pantoprazole Sodium [Protonix] 40 mg PO DAILY 08/22/18 08/22/18 Previous Rx's Medication Instructions Recorded Atorvastatin [Lipitor] 40 mg PO HS 30 Days #30 tablet 08/23/18 amLODIPine [Norvasc] 5 mg PO DAILY 30 Days #30 tablet 08/23/18 Allergies Allergy/AdvReac Type Severity Reaction Status Date / Time Amoxicillin Allergy Vomiting Verified 07/26/18 10:48 Azelastine Allergy Vomiting Verified 07/26/18 10:48 cephalexin Allergy Vomiting Verified 07/26/18 10:48 clonidine Allergy Vomiting Verified 07/26/18 10:48 coconut Allergy Hives Verified 08/22/18 11:00 doxycycline Allergy Vomiting Verified 07/26/18 10:48 glycerin Allergy Vomiting Verified 07/26/18 10:48 [From Colace Glycerin (Adult)] levothyroxine Allergy Vomiting Verified 07/26/18 10:48 levothyroxine sodium Allergy Vomiting Verified 07/26/18 10:48 montelukast [From Singulair] Allergy Vomiting Verified 07/26/18 10:48 Penicillins Allergy Vomiting Verified 07/26/18 10:48 Raloxifene Allergy Vomiting Verified 07/26/18 10:48 red dye Allergy Vomiting Verified 07/26/18 10:48 sodium Allergy Vomiting Verified 07/26/18 10:48 sulfur [From Sulfur-8] Allergy Vomiting Verified 07/26/18 10:48 tetracycline Allergy Vomiting Verified 07/26/18 10:48 yellow dye Allergy Vomiting Verified 07/26/18 10:48 caffeine AdvReac See Verified 03/16/16 08:47 Comments feathers AdvReac See Verified 03/16/16 08:47 Comments grass pollen AdvReac See Verified 03/16/16 08:47 Comments lisinopril AdvReac Dizziness Verified 08/22/18 11:00 milk AdvReac See Verified 03/16/16 08:47 Comments mold AdvReac See Verified 03/16/16 08:47 Comments pollen extracts AdvReac See Verified 03/16/16 08:47 Comments [place] AdvReac See Verified 03/16/16 08:47 Comments theophylline AdvReac See Verified 03/16/16 08:47 Comments tree and shrub pollen AdvReac See Verified 03/16/16 08:47 Comments sodium Allergy Vomiting Uncoded 07/26/18 10:48 vitamin c AdvReac Congested Uncoded 08/22/18 11:01 Constitutional: Reports: weakness. Denies: fever, chills Eyes: Denies: eye discharge, vision change Cardiovascular: Denies: chest pain, palpitations, dyspnea on exertion Respiratory: Denies: cough, dyspnea, wheezes Gastrointestinal: Denies: abdominal pain, nausea, vomiting, diarrhea Genitourinary: Denies: urgency, dysuria Musculoskeletal: Denies: back pain, neck pain Integumentary: Denies: rash, abrasion Neurological: Reports: headache, weakness. Denies: numbness, paresthesias, confusion Psychiatric: Denies: anxiety, depression Endocrine: Denies: fatigue Past Medical History - Past Medical History Medical history: Reports: arthritis, GERD, hyperlipidemia, osteoporosis Surgical history: Reports: hysterectomy Psychiatric history: Reports: no psych history - Social History Smoking Status: Never smoker Smokeless Tobacco Status: No Alcohol use: Reports: none Drug use: Reports: none Physical Exam - General Limitations: no limitations General appearance: alert, in no apparent distress Course Vital Signs Temperature 97.7 F 08/22/18 10:38 Pulse Rate 79 08/22/18 10:38 Respiratory Rate 18 08/22/18 10:38 Blood Pressure 179/96 08/22/18 10:38 O2 Sat by Pulse Oximetry 97 08/22/18 10:38 Temperature 98.1 F 08/23/18 13:10 Pulse Rate 74 08/23/18 06:27 Respiratory Rate 15 08/23/18 13:10 Blood Pressure 152/93 08/23/18 13:10 O2 Sat by Pulse Oximetry 94 08/23/18 13:10 Oxygen Delivery Oxygen Delivery Room Air Medical Decision Making - Lab Data Result diagrams: 08/23/18 04:50 08/23/18 04:50 Lab Results 08/22/18 08/22/18 08/22/18 Range/Units 10:39 10:41 10:41 WBC 2.7 L (4.3-11.1) K/mcL RBC 5.01 H (3.82-4.97) M/mcL Hgb 14.8 (11.5-15.4) g/dL Hct 45.5 H (35.3-44.9) % MCV 90.8 (83.0-100.0) fL MCH 29.5 (28.0-33.3) pg MCHC 32.5 (31.6-35.5) g/dL RDW 13.9 (11.5-14.5) % Plt Count 152 (140-400) K/mcL MPV 10.0 (9.4-12.4) fL ESR (0-15) mm/hr PT 10.2 (9.4-12.1) Seconds INR 0.9 APTT 24.6 L (26.0-36.0) Seconds Sodium (136-145) mEq/L Potassium (3.5-5.1) mEq/L Chloride (98-107) mEq/L Carbon Dioxide (23-29) mEq/L BUN (8-23) mg/dL Creatinine (0.60-1.20) mg/dL Est GFR ( Amer) (> 60) Est GFR (Non-Af Amer) (> 60) BUN/Creatinine Ratio (6-26) Glucose (70-105) mg/dL POC Glucose 126 H (70-99) mg/dL Calculated Osmolality (280-300) Calcium (8.6-10.3) mg/dL Troponin I (< 0.04) ng/mL C-Reactive Protein (Less than 10) mg/L Acetylchol Rcpt Block Ab (0-26) % Acetylchol Rcpt Bind Ab (0.0-0.4) nmol/L 08/22/18 08/22/18 08/22/18 Range/Units 10:41 10:41 10:41 WBC (4.3-11.1) K/mcL RBC (3.82-4.97) M/mcL Hgb (11.5-15.4) g/dL Hct (35.3-44.9) % MCV (83.0-100.0) fL MCH (28.0-33.3) pg MCHC (31.6-35.5) g/dL RDW (11.5-14.5) % Plt Count (140-400) K/mcL MPV (9.4-12.4) fL ESR 2 (0-15) mm/hr PT (9.4-12.1) Seconds INR APTT (26.0-36.0) Seconds Sodium 135 L (136-145) mEq/L Potassium 3.8 (3.5-5.1) mEq/L Chloride 102 (98-107) mEq/L Carbon Dioxide 25 (23-29) mEq/L BUN 14 (8-23) mg/dL Creatinine 1.01 (0.60-1.20) mg/dL Est GFR ( Amer) > 60 (> 60) Est GFR (Non-Af Amer) 55 L (> 60) BUN/Creatinine Ratio 14 (6-26) Glucose 161 H (70-105) mg/dL POC Glucose (70-99) mg/dL Calculated Osmolality 284 (280-300) Calcium 8.8 (8.6-10.3) mg/dL Troponin I < 0.03 (< 0.04) ng/mL C-Reactive Protein < 5 (Less than 10) mg/L Acetylchol Rcpt Block Ab 3 (0-26) % Acetylchol Rcpt Bind Ab 0.0 (0.0-0.4) nmol/L Attestation Statement - Attestation Attestation: I examined this patient and my medical decision-making was reviewed with the Resident Physician. I agree with the documented findings, disposition and treatment plan as described except to the extent set forth below. Normal neuro exam with NIH 0 at the time of our evaluation. Admitted for further evaluation of TIA based on symptoms reported prior to arrival.
== END 2018-08-23 17:17 | disposition home or self-care (01) ==
LOC: EMEROOARM 10:26 → 3BNU 10:26
PROVIDERS: ADMIT Hospitalist; ATTEND Hospitalist

== ENCOUNTER 2019-08-05 23:01 | Observation (INO) ==
[2019-08-05] MEDS ORDERED: 0.9 % Sodium Chloride 500 ML IVC ONE (23:05)
[2019-08-05 23:48] LABS: Basophils % 0.5 %; Eosinophils # 0.1 K/mcL (0.0-0.6); Eosinophils % 3.3 %; Hematocrit 42.8 % (35.3-44.9); Hemoglobin 14.4 g/dL (11.5-15.4); Immature Granulocytes % 0.2 % (0-4); Lymphocytes # 1.8 K/mcL (0.6-4.6); Lymphocytes % 41.4 %; Mean Corpuscular HGB Conc 33.6 g/dL (31.6-35.5); Mean Corpuscular Hemoglobin 29.1 pg (28.0-33.3); Mean Corpuscular Volume 86.6 fL (83.0-100.0); Mean Platelet Volume 9.7 fL (9.4-12.4); Monocytes # 0.4 K/mcL (0.0-1.3); Monocytes % 9.2 %; Neutrophils # 1.9 K/mcL (1.6-8.9); Platelet Count 275 K/mcL (140-400); Red Blood Count 4.94 M/mcL (3.82-4.97); Red Cell Distribution Width 13.2 % (11.5-14.5); Segmented Neutrophils % 45.4 %; White Blood Count 4.2 K/mcL (4.3-11.1)
[2019-08-05] MEDS ORDERED: 0.9 % Sodium Chloride 1,000 ML ONE (23:54)
[2019-08-06 00:10] LABS: Alanine Aminotransferase 17 Units/L (7-52); Albumin 4.2 g/dL (3.5-5.7); Albumin/Globulin Ratio 1.6 (1.1-2.2); Alkaline Phosphatase 83 Units/L (34-104); Aspartate Amino Transferase 21 Units/L (13-39); BUN/Creatinine Ratio 16 (6-26); Bilirubin,Total 0.3 mg/dL (0.3-1.0); Blood Urea Nitrogen 19 mg/dL (8-23); Calcium 9.9 mg/dL (8.6-10.3); Carbon Dioxide 27 mEq/L (23-29); Chloride 102 mEq/L (98-107); Globulin 2.6 g/dL (2.4-3.5); Glucose 101 mg/dL (70-105); Osmolality,Calculated 286 (280-300); Potassium 4.2 mEq/L (3.5-5.1); Sodium 137 mEq/L (136-145); Total Protein 6.8 g/dL (6.4-8.9); Troponin I < 0.03 ng/mL (< 0.04); eGFR For African Americans 56 (> 60); eGFR For Non-African Americans 46 (> 60)
[2019-08-06 00:46] LABS: Bilirubin,Urine Small (Negative); Blood,Urine Negative (Negative); Clarity,Urine Cloudy (Clear); Color,Urine Yellow (Yellow); Glucose,Urine (UA) Normal (Normal); Ketones,Urine Trace mg/dL (Negative); Leukocyte Esterase,Urine Small (Negative); Nitrite,Urine Negative (Negative); PH,Urine 5.5 pH Units (5.0-8.0); Protein,Urine Negative (Neg-Trace); Specific Gravity,Urine 1.024 (1.010-1.025); Urobilinogen,Urine Normal (Normal)
[2019-08-06 00:49] LABS: Bacteria,Urine None Seen per hpf (None-Few); Hyaline Casts,Urine Few per lpf (None-Few); RBC,Urine 0-3 per hpf (0-3); Squamous Epithelial Cell,Urine Many per lpf (None-Few)
[2019-08-06] MEDS ORDERED: Naloxone 0.4 MG/ML INJ IVP PRN ×2 (03:09→03:30)
[2019-08-06] MEDS ORDERED: Ondansetron ODT 4 MG TAB.RAPDIS SL PRN (03:30)
[2019-08-06] MEDS ORDERED: Fluticasone Propionate Nasal 50 MCG/SPRAY BOTTLE NS PRN ×2 (04:01→04:50)
[2019-08-06] MEDS ORDERED: Loratadine 10 MG TABLET PO PRN (04:32)
[2019-08-06 06:45] LABS: Chol/HDL Ratio 4.1 (0-4.9); Magnesium 2.4 mg/dL (1.6-2.6)
[2019-08-06 08:39] LABS: Hematocrit 44.6 % (35.3-44.9); Mean Corpuscular HGB Conc 33.6 g/dL (31.6-35.5); Mean Corpuscular Hemoglobin 29.3 pg (28.0-33.3); Mean Corpuscular Volume 87.1 fL (83.0-100.0); Mean Platelet Volume 9.5 fL (9.4-12.4); Platelet Count 273 K/mcL (140-400); Red Blood Count 5.12 M/mcL (3.82-4.97); Red Cell Distribution Width 13.2 % (11.5-14.5); White Blood Count 4.8 K/mcL (4.3-11.1)
[2019-08-06 08:59] LABS: Calcium 9.9 mg/dL (8.6-10.3); Potassium 4.4 mEq/L (3.5-5.1)
[2019-08-06] MEDS ORDERED: Aspirin Enteric Coated 81 MG Tablet PO SCH (09:00)
[2019-08-06 15:53] VITALS: BP 147/86
[2019-08-06] MEDS ORDERED: Loratadine 10 MG TABLET PO SCH (21:00)
== END 2019-08-06 17:09 | disposition home or self-care (01) ==
LOC: EMEROOARM 23:01 → 3BNU 23:01
PROVIDERS: ADMIT Internal Medicine; ATTEND Internal Medicine

== ENCOUNTER 2019-08-25 09:21 | Observation (INO) ==
[2019-08-25] MEDS ORDERED: Nitroglycerin 0.4 MG TAB.SUBL SL PRN (09:43)
[2019-08-25 10:27] LABS: Basophils % 0.6 %; Eosinophils # 0.1 K/mcL (0.0-0.6); Eosinophils % 2.7 %; Hematocrit 43.9 % (35.3-44.9); Hemoglobin 14.4 g/dL (11.5-15.4); Immature Granulocytes % 0.2 % (0-4); Lymphocytes # 1.4 K/mcL (0.6-4.6); Mean Corpuscular HGB Conc 32.8 g/dL (31.6-35.5); Mean Corpuscular Hemoglobin 28.9 pg (28.0-33.3); Mean Corpuscular Volume 88.2 fL (83.0-100.0); Mean Platelet Volume 10.3 fL (9.4-12.4); Monocytes # 0.3 K/mcL (0.0-1.3); Monocytes % 6.5 %; Neutrophils # 3.4 K/mcL (1.6-8.9); Platelet Count 227 K/mcL (140-400); Red Blood Count 4.98 M/mcL (3.82-4.97); Red Cell Distribution Width 13.2 % (11.5-14.5); White Blood Count 5.3 K/mcL (4.3-11.1)
[2019-08-25 10:29] LABS: INR 0.9; Prothrombin Time 10.3 Seconds (9.4-12.1)
[2019-08-25 10:31] LABS: Activated Partial Thrombo Time 31.5 Seconds (26.0-36.0)
[2019-08-25 10:46] LABS: BUN/Creatinine Ratio 21 (6-26); Blood Urea Nitrogen 23 mg/dL (8-23); Calcium 9.9 mg/dL (8.6-10.3); Carbon Dioxide 26 mEq/L (23-29); Chloride 103 mEq/L (98-107); Glucose 98 mg/dL (70-105); Osmolality,Calculated 290 (280-300); Potassium 3.9 mEq/L (3.5-5.1); Sodium 138 mEq/L (136-145); Troponin I < 0.03 ng/mL (< 0.04); eGFR For African Americans > 60 (> 60); eGFR For Non-African Americans 50 (> 60)
[2019-08-25] MEDS ORDERED: Ondansetron 4 MG/2 ML VIAL IVP PRN (11:39)
[2019-08-25] MEDS ORDERED: Acetaminophen 325 MG TABLET PO PRN (11:39)
[2019-08-25] MEDS ORDERED: Naloxone 0.4 MG/ML INJ IVP PRN (11:39)
[2019-08-25] MEDS: *HR* Heparin 5,000 UNIT/ML VIAL SQ SCH ×2 (14:27→21:10)
[2019-08-25] MEDS: Fluticasone Propionate Nasal 50 MCG/SPRAY BOTTLE NS PRN (21:29)
[2019-08-26] MEDS: *HR* Heparin 5,000 UNIT/ML VIAL SQ SCH (05:44)
[2019-08-26 05:58] LABS: Basophils % 0.5 %; Eosinophils # 0.2 K/mcL (0.0-0.6); Eosinophils % 5.3 %; Hematocrit 42.9 % (35.3-44.9); Hemoglobin 13.8 g/dL (11.5-15.4); Immature Granulocytes % 0.3 % (0-4); Lymphocytes # 1.7 K/mcL (0.6-4.6); Mean Corpuscular HGB Conc 32.2 g/dL (31.6-35.5); Mean Corpuscular Hemoglobin 28.8 pg (28.0-33.3); Mean Corpuscular Volume 89.4 fL (83.0-100.0); Mean Platelet Volume 9.9 fL (9.4-12.4); Monocytes # 0.3 K/mcL (0.0-1.3); Monocytes % 7.3 %; Neutrophils # 1.8 K/mcL (1.6-8.9); Platelet Count 199 K/mcL (140-400); Red Cell Distribution Width 13.2 % (11.5-14.5); Segmented Neutrophils % 44.6 %
[2019-08-26] MEDS ORDERED: Regadenoson 0.4 MG/5 ML SYRINGE IVP ONE (06:13)
[2019-08-26 06:17] LABS: BUN/Creatinine Ratio 17 (6-26); Blood Urea Nitrogen 17 mg/dL (8-23); Calcium 9.8 mg/dL (8.6-10.3); Carbon Dioxide 28 mEq/L (23-29); Chloride 104 mEq/L (98-107); Glucose 94 mg/dL (70-105); Magnesium 2.1 mg/dL (1.6-2.6); Osmolality,Calculated 293 (280-300); Phosphorous 3.7 mg/dL (2.7-4.5); Potassium 4.1 mEq/L (3.5-5.1); Sodium 141 mEq/L (136-145); eGFR For African Americans > 60 (> 60); eGFR For Non-African Americans 53 (> 60)
[2019-08-26] MEDS ORDERED: Aspirin Enteric Coated 81 MG Tablet PO SCH (09:00)
[2019-08-26] MEDS ORDERED: Fluticasone Propionate Nasal 50 MCG/SPRAY BOTTLE NS PRN (09:00)
[2019-08-26] MEDS ORDERED: Valsartan 160 MG TABLET PO SCH (09:00)
[2019-08-26] MEDS: Fluticasone Propionate Nasal 50 MCG/SPRAY BOTTLE NS PRN (09:35)
[2019-08-26 12:08] VITALS: BP 106/71
== END 2019-08-26 15:17 | disposition home or self-care (01) ==
LOC: EMEROOARM 09:21 → 2ANU 09:21 → SUATTDRO 12:51 → 2ANU 13:27
PROVIDERS: ADMIT Internal Medicine; ATTEND Internal Medicine